=== PATIENT | female | born 1995 | race Two or more races ===

== ENCOUNTER 2020-05-20 16:54 | Outpatient (CLI) | payer OTHER | END 2020-05-20 16:55 | disposition home or self-care (01) | LOC: COV 16:54 | PROVIDERS: ATTEND Family Medicine | DX: M79.10 Myalgia, unspecified site (principal); R53.83 Other fatigue; R11.2 Nausea with vomiting, unspecified; Z20.822 Contact with and (suspected) exposure to COVID-19 ==

== ENCOUNTER 2020-12-20 14:53 | Emergency (ER) | payer OTHER ==
[2020-12-20 15:05] VITALS: BP 95/58
--- NOTE | 2020-12-20 15:31 | ED Physician Documentation ---
PD HPI HEAD INJURY - Stated complaint Stated Complaint: H/A S/P HEAD INJURY - Chief complaint Chief Complaint: Neuro - History obtained from History obtained from: Patient - History of Present Illness Mechanism of head injury: Other (hit head on a cabinet yesterday, increasing headache today.) Pain level max: 8 Pain level now: 6 Location of injury: Back Quality of pain: Aching, Dull Associated symptoms: No: LOC, AMS, Amnesia, Nausea / vomiting, Neck pain, Paresthesias, Seizures Contributing factors: No: Anticoagulated, Intoxicated Recently seen: Not recently seen - Additional information Additional information: 25-year-old female presents to the emergency department stating that she struck her head on a cabinet yesterday when she fell off of a stool. Hit the back of her head. Has had increasing headaches today. No loss of consciousness. No nausea or vomiting. No altered mental status. Nothing makes it better or worse. Review of Systems Constitutional: denies: Fever, Chills GI: denies: Vomiting Skin: denies: Rash Musculoskeletal: denies: Neck pain, Back pain Neurologic: denies: Headache PD PAST MEDICAL HISTORY - Past Medical History Past Medical History: No - Past Surgical History Past Surgical History: No - Present Medications Home Medications: Ambulatory Orders Medication Instructions Recorded Confirmed No Known Home Medications 12/20/20 12/20/20 - Allergies Allergies/Adverse Reactions: Allergies Allergy/AdvReac Type Severity Reaction Status Date / Time casein Allergy Unknown Verified 12/20/20 15:05 - Living Situation Living Situation: reports: With family Living Arrangement: reports: At home - Social History Does the pt have substance abuse?: No - Family History Family history: reports: Non contributory PD ED PE NORMAL - Vitals Vital signs reviewed: Yes - General General: Alert and oriented X 3, No acute distress - HEENT HEENT: Atraumatic, PERRL, Ears normal, Moist mucous membranes, Pharynx benign - Neck Neck: Supple, no meningeal sign, No bony TTP - Cardiac Cardiac: RRR, Strong equal pulses - Respiratory Respiratory: No respiratory distress, Clear bilaterally - Abdomen Abdomen: Soft, Non tender, Non distended - Back Back: No spinal TTP - Derm Derm: Warm and dry - Extremities Extremities: No edema - Neuro Neuro: Alert and oriented X 3, line assembler aircraft 2-12 intact, No motor deficit, No sensory deficit, Normal speech Eye Opening: Spontaneous Motor: Obeys Commands Verbal: Oriented GCS Score: 15 - Psych Psych: Normal mood, Normal affect Results - Vitals Vitals: Vital Signs - 24 hr 12/20/20 14:58 Temperature 36.2 C L Heart Rate 83 Respiratory 16 Rate Blood Pressure 95/58 L O2 Saturation 100 Oxygen O2 Source Room air - Rads (name of study) head CT Radiology: Final report received, EMP read contemporaneously, See rad report (no acute abnormality.) PD MEDICAL DECISION MAKING - ED course Complexity details: reviewed results, re-evaluated patient, considered differential, d/w patient ED course: No acute findings on head CT. Head injury instructions given at bedside. Patient is well-appearing, nontoxic. No focal neurological deficits. No vomiting. Patient counseled regarding signs and symptoms for which I believe and urgent re-evaluation would be necessary. Patient with good understanding of and agreement to plan and is comfortable going home at this time This document was made in part using voice recognition software. While efforts are made to proofread this document, sound alike and grammatical errors may occur. Departure - Departure Disposition: 01 Home, Self Care Clinical Impression: Closed head injury Qualifiers: Encounter type: initial encounter Qualified Code(s): S09.90XA - Unspecified injury of head, initial encounter Condition: Good Instructions: ED Head Injury Closed Follow-Up: your,doctor as needed [Other] Comments: You can use Motrin or Tylenol as needed for pain. Return if you worsen. Follow-up with your doctor for further care. Your head CT does not show any acute abnormalities today. Discharge Date/Time: 12/20/20 16:05
--- NOTE | 2020-12-20 15:37 | CT Report ---
PROCEDURE: HEAD WO INDICATIONS: closed head injury yesterday, increased headache TECHNIQUE: Noncontrast 4.5 mm thick angled axial sections acquired from the foramen magnum to the vertex. For r adiation dose reduction, the following was used: automated exposure control, adjustment of mA and/or kV according to patient size. COMPARISON: None. FINDINGS: Image quality: Excellent. CSF spaces: Basal cisterns are patent. No extra-axial fluid collections. Ventricles are normal in size and shape. Brain: No midline shift. No intracranial masses or hemorrhage. Torres-white matter interface is norm al. Skull and face: Calvarium and visualized facial bones are intact, without suspicious lesions. Sinuses: Visualized sinuses and mastoids are clear. IMPRESSION: Unremarkable CT brain Reviewed by: Roger Montalvo MD on 12/20/2020 2:36 PM [facility] Approved by: Roger Montalvo MD on 12/20/2020 2:36 PM [facility] Station ID: [id number]
== END 2020-12-20 16:05 | disposition home or self-care (01) ==
LOC: ED 14:53
DX: S09.90XA Unspecified injury of head, initial encounter (principal); W08.XXXA Fall from other furniture, initial encounter
CPT/HCPCS: 99282; 99284

== ENCOUNTER 2021-05-14 08:00 | Outpatient (CLI) | payer BC, OTHER ==
[2021-05-14 23:11] LABS: BACTERIAL VAGINOSIS DNA NEGATIVE (NEGATIVE); CANDIDA GLABRATA DNA NEGATIVE (NEGATIVE); CANDIDA GROUP DNA NEGATIVE (NEGATIVE); CANDIDA KRUSEI DNA NEGATIVE (NEGATIVE); TRICHOMONAS VAGINALIS DNA NEGATIVE (NEGATIVE)
== END 2021-05-14 23:59 ==
LOC: LAB.N 08:00
PROVIDERS: ATTEND Family Medicine
DX: N89.8 Other specified noninflammatory disorders of vagina (principal)
CPT/HCPCS: 87661; 87801

== ENCOUNTER 2021-07-28 19:36 | Emergency (ER) | payer BC, OTHER ==
[2021-07-28] MEDS ORDERED: IBUPROFEN 600 MG TABLET PO STA (19:54)
--- OUTSIDE RECORDS SUMMARY | 2021-07-28 19:59 | EXTERNAL MEDICAL SUMMARY RPT | Continuity of Care Document ---
:1995 Author Organization [facility] Address [address] [place] [address] Phone Care Team Providers Name Role Phone CARLOTA Unavailable Unavailable MD Unavailable Unavailable MA Unavailable Unavailable Allergies No information. Encounters No information. Medications No information. 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[employer]INEER[employer] RESEARCH MANAGER III All [id number] POC URINALYSIS DIP All [id number] Vaginitis Pathogens-Affirm ENGINEERING RESEARCH MANAGER III All [id number] POC URINALYSIS DIP All Results test status date ordered by attending specimen irasema e Candida_glabrata_DNA_P unknown [id number] unknown unknown unknown resence_in_Vaginal_flui d_by_NAA_with_probe_det ection Urobilinogen_Presence_ unknown [id number] unknown unknown unknown in_Urine_by_Test_strip Specific_gravity_of_Ur unknown 38653171 unknown unknown unknown ine_by_Test_strip pH_of_Urine_by_Test_st unknown 71900725 unknown unknown unknown rip Nitrite_Presence_in_Ur unknown 34445966 unknown unknown unknown ine_by_Test_strip Leukocyte_esterase_Pre unknown 23909564 unknown unknown unknown sence_in_Urine_by_Test_ strip Ketones_Mass_volume_in unknown 26952686 unknown unknown unknown _Urine_by_Test_strip Glucose_Mass_volume_in unknown 56696261 unknown unknown unknown _Urine_by_Test_strip Color_of_Urine unknown 61897811 unknown unknown unknown Bilirubin.total_Presen unknown 29729730 unknown unknown unknown ce_in_Urine_by_Test_str ip Appearance_of_Urine unknown 21139003 unknown unknown unk nown urinalysis_routine unknown 81240702 unknown unknown unkn own appearance_urine unknown 70193157 unknown unknown unknow n leukocyte_esterase_uri unknown 53183501 unknown unknown unknown ne_by_dipstick urobilinogen_urine_sem unknown 24926456 unknown unknown unknown iquantitative_dipstick_ specific_gravity_urine unknown 00449598 unknown unknown unknown pH_urine_semiquantitat unknown 73402687 unknown unknown unknown madison nitrite_urine_semiquan unknown 86751973 unknown unknown unknown titative ketones_urine_by_test_ unknown 75949585 unknown unknown unknown strip bilirubin_urine unknown 84135864 unknown unknown unknown urine_color unknown 82367870 unknown unknown unknown Albumin_Presence_in_Ur unknown 19730018 unknown unknown unknown ine RBC_urine_dipstick unknown 44957822 unknown unknown unkn own Candida_krusei_by_Real unknown 24416354 unknown unknown unknown -Time_PCR Erythrocytes_area_in_U unknown 51024350 unknown unknown unknown rine_sediment_by_Micros copy_high_power_field glucose_urine_semiquan unknown 08288971 unknown unknown unknown titative protein_urine_semiquan unknown 41534626 unknown unknown unknown titative_dipstick_ Candida_glabrata_by_Re unknown 60372151 unknown unknown unknown if-lkuj_CGL_-_sckjfbv_e ulture DIPSTICK_URINE_STRIP_L unknown 30587937 unknown unknown unknown OT_NUMBER CANDIDA_KRUSEI_DNA unknown 30287905 unknown unknown unkn own CANDIDA_GLABRATA_DNA unknown 03028131 unknown unknown un known T unknown 58509577 unknown unknown unknown T unknown 91900486 unknown unknown unknown Candida_glabrata_DNA_P unknown 52998133 unknown unknown unknown resence_in_Vaginal_flui d_by_NAA_with_probe_det ection Urobilinogen_Presence_ unknown 27670641 unknown unknown unknown in_Urine_by_Test_strip Specific_gravity_of_Ur unknown 94810265 unknown unknown unknown ine_by_Test_strip pH_of_Urine_by_Test_st unknown 29748495 unknown unknown unknown rip Nitrite_Presence_in_Ur unknown 00558717 unknown unknown unknown ine_by_Test_strip Leukocyte_esterase_Pre unknown 48804474 unknown unknown unknown sence_in_Urine_by_Test_ strip Ketones_Mass_volume_in unknown 11138489 unknown unknown unknown _Urine_by_Test_strip Glucose_Mass_volume_in unknown 98291547 unknown unknown unknown _Urine_by_Test_strip Color_of_Urine unknown 33125673 unknown unknown unknown Bilirubin.total_Presen unknown 35459443 unknown unknown unknown ce_in_Urine_by_Test_str ip Appearance_of_Urine unknown 52702787 unknown unknown unk nown urinalysis_routine unknown 07296092 unknown unknown unkn own appearance_urine unknown 98076055 unknown unknown unknow n leukocyte_esterase_uri unknown 86545715 unknown unknown unknown ne_by_dipstick urobilinogen_urine_sem unknown 56431384 unknown unknown unknown iquantitative_dipstick_ specific_gravity_urine unknown 13495233 unknown unknown unknown pH_urine_semiquantitat unknown 96906534 unknown unknown unknown madison nitrite_urine_semiquan unknown 16179955 unknown unknown unknown titative ketones_urine_by_test_ unknown 77626672 unknown unknown unknown strip bilirubin_urine unknown 99249175 unknown unknown unknown urine_color unknown 52459029 unknown unknown unknown Albumin_Presence_in_Ur unknown 96298904 unknown unknown unknown ine RBC_urine_dipstick unknown 59854681 unknown unknown unkn own Candida_krusei_by_Real unknown 75082238 unknown unknown unknown -Time_PCR Erythrocytes_area_in_U unknown 50260836 unknown unknown unknown rine_sediment_by_Micros copy_high_power_field glucose_urine_semiquan unknown 99781107 unknown unknown unknown titative protein_urine_semiquan unknown 96633584 unknown unknown unknown titative_dipstick_ Candida_glabrata_by_Re unknown 98901186 unknown unknown unknown xo-bvlu_CRY_-_wkmgydz_a ulture DIPSTICK_URINE_STRIP_L unknown 19831099 unknown unknown unknown OT_NUMBER CANDIDA_KRUSEI_DNA unknown 37809892 unknown unknown unkn own CANDIDA_GLABRATA_DNA unknown 08538753 unknown unknown un known T unknown 52091599 unknown unknown unknown T unknown 82956455 unknown unknown unknown Candida_glabrata_DNA_P unknown 14518111 unknown unknown unknown resence_in_Vaginal_flui d_by_NAA_with_probe_det ection Urobilinogen_Presence_ unknown 49117919 unknown unknown unknown in_Urine_by_Test_strip Specific_gravity_of_Ur unknown 38616393 unknown unknown unknown ine_by_Test_strip pH_of_Urine_by_Test_st unknown 19687659 unknown unknown unknown rip Nitrite_Presence_in_Ur unknown 26572370 unknown unknown unknown ine_by_Test_strip Leukocyte_esterase_Pre unknown 01707144 unknown unknown unknown sence_in_Urine_by_Test_ strip Ketones_Mass_volume_in unknown 81763776 unknown unknown unknown _Urine_by_Test_strip Glucose_Mass_volume_in unknown 25555150 unknown unknown unknown _Urine_by_Test_strip Color_of_Urine unknown 10806472 unknown unknown unknown Bilirubin.total_Presen unknown 73649064 unknown unknown unknown ce_in_Urine_by_Test_str ip Appearance_of_Urine unknown 66398454 unknown unknown unk nown urinalysis_routine unknown 67197949 unknown unknown unkn own appearance_urine unknown 66536592 unknown unknown unknow n leukocyte_esterase_uri unknown 71910512 unknown unknown unknown ne_by_dipstick urobilinogen_urine_sem unknown 59919635 unknown unknown unknown iquantitative_dipstick_ specific_gravity_urine unknown 63323649 unknown unknown unknown pH_urine_semiquantitat unknown 35995919 unknown unknown unknown madison nitrite_urine_semiquan unknown 60159065 unknown unknown unknown titative ketones_urine_by_test_ unknown 12572635 unknown unknown unknown strip bilirubin_urine unknown 35466918 unknown unknown unknown urine_color unknown 30499017 unknown unknown unknown Albumin_Presence_in_Ur unknown 10247020 unknown unknown unknown ine RBC_urine_dipstick unknown 20820263 unknown unknown unkn own Candida_krusei_by_Real unknown 03793731 unknown unknown unknown -Time_PCR Erythrocytes_area_in_U unknown 70822727 unknown unknown unknown rine_sediment_by_Micros copy_high_power_field glucose_urine_semiquan unknown 13706751 unknown unknown unknown titative protein_urine_semiquan unknown 39911470 unknown unknown unknown titative_dipstick_ Candida_glabrata_by_Re unknown 95686276 unknown unknown unknown on-papv_EMF_-_kcmqgkr_x ulture DIPSTICK_URINE_STRIP_L unknown 20210514 unknown unknown unknown OT_NUMBER CANDIDA_KRUSEI_DNA unknown 20210514 unknown unknown unkn own CANDIDA_GLABRATA_DNA unknown 20210514 unknown unknown un known T unknown 20210514 unknown unknown unknown T unknown 20210514 unknown unknown unknown facility observation status value reference units lab abnor mal line range code notes All Candida_glab unknown NEGATIVE unknown _6956 unkno wn unknown rata_DNA_Pres 3-5 ence_in_Vagin al_fluid_by_N AA_with_probe _detection All Urobilinogen unknown negative unknown _5818 unkno wn unknown _Presence_in_ -0 Urine_by_Test _strip All Specific_gra unknown 1.005 unknown _5811 unknown unknown vity_of_Urine -5 _by_Test_stri p All pH_of_Urine_ unknown 5 unknown _5803 unknown unknown by_Test_strip -2 All Nitrite_Pres unknown negative unknown _5802 unkno wn unknown ence_in_Urine -4 _by_Test_stri p All Leukocyte_es unknown negative unknown _5799 unkno wn unknown terase_Presen -2 ce_in_Urine_b y_Test_strip All Ketones_Mass unknown negative unknown _5797 unkno wn unknown _volume_in_Ur -6 ine_by_Test_s trip All Glucose_Mass unknown negative unknown _5792 unkno wn unknown _volume_in_Ur -7 ine_by_Test_s trip All Color_of_Uri unknown yellow unknown _5778 unknown unknown ne -6 All Bilirubin.to unknown negative unknown _5770 unkno wn unknown tal_Presence_ -3 in_Urine_by_T est_strip All Appearance_o unknown clear unknown _5767 unknown unknown f_Urine -9 All urinalysis_r unknown Clean unknown _47 unknown unknown outine Catch All appearance_u unknown clear unknown _328 unknown unknown rine All leukocyte_es unknown negative unknown _327 unkno wn unknown terase_urine_ by_dipstick All urobilinogen unknown negative unknown _326 unkno wn unknown _urine_semiqu antitative_di pstick_ All specific_gra unknown 1.005 unknown _325 unknown unknown vity_urine All pH_urine_sem unknown 5 unknown _324 unknown unknown iquantitative All nitrite_urin unknown negative unknown _323 unkno wn unknown e_semiquantit ative All ketones_urin unknown negative unknown _322 unkno wn unknown e_by_test_str ip All bilirubin_ur unknown negative unknown _319 unkno wn unknown ine All urine_color unknown yellow unknown _2751 unknown unknown All Albumin_Pres unknown negative unknown _1753 unkno wn unknown ence_in_Urine -3 All RBC_urine_di unknown negative unknown _1700 unkno wn unknown pstick 005 All Candida_krus unknown NEGATIVE unknown _1535 unkno wn unknown ei_by_Real-Ti 62 me_PCR All Erythrocytes unknown negative unknown _1394 unkno wn unknown _area_in_Urin 5-1 e_sediment_by _Microscopy_h igh_power_fie ld All glucose_urin unknown negative unknown _123 unkno wn unknown e_semiquantit ative All protein_urin unknown negative unknown _118 unkno wn unknown e_semiquantit ative_dipstic k_ All Candida_glab unknown NEGATIVE unknown _1087 unkno wn unknown rata_by_Real- 87 time_PCR_-_va ginal_culture All DIPSTICK_URI unknown 594960 unknown _1014 unknown unknown NE_STRIP_LOT_ 00 NUMBER All CANDIDA_KRUS unknown NEGATIVE unknown CKRUS unkno wn unknown EI_DNA EI_DNA All CANDIDA_GLAB unknown NEGATIVE unknown CGLAB unkno wn unknown RATA_DNA RATA_D NA All T unknown NEGATIVE unknown C._KR unknown un known USEI_D NA All T unknown NEGATIVE unknown C._GL unknown un known ABRATA _DNA All Candida_glab unknown NEGATIVE unknown _6956 unkno wn unknown rata_DNA_Pres 3-5 ence_in_Vagin al_fluid_by_N AA_with_probe _detection All Urobilinogen unknown negative unknown _5818 unkno wn unknown _Presence_in_ -0 Urine_by_Test _strip All Specific_gra unknown 1.005 unknown _5811 unknown unknown vity_of_Urine -5 _by_Test_stri p All pH_of_Urine_ unknown 5 unknown _5803 unknown unknown by_Test_strip -2 All Nitrite_Pres unknown negative unknown _5802 unkno wn unknown ence_in_Urine -4 _by_Test_stri p All Leukocyte_es unknown negative unknown _5799 unkno wn unknown terase_Presen -2 ce_in_Urine_b y_Test_strip All Ketones_Mass unknown negative unknown _5797 unkno wn unknown _volume_in_Ur -6 ine_by_Test_s trip All Glucose_Mass unknown negative unknown _5792 unkno wn unknown _volume_in_Ur -7 ine_by_Test_s trip All Color_of_Uri unknown yellow unknown _5778 unknown unknown ne -6 All Bilirubin.to unknown negative unknown _5770 unkno wn unknown tal_Presence_ -3 in_Urine_by_T est_strip All Appearance_o unknown clear unknown _5767 unknown unknown f_Urine -9 All urinalysis_r unknown Clean unknown _47 unknown unknown outine Catch All appearance_u unknown clear unknown _328 unknown unknown rine All leukocyte_es unknown negative unknown _327 unkno wn unknown terase_urine_ by_dipstick All urobilinogen unknown negative unknown _326 unkno wn unknown _urine_semiqu antitative_di pstick_ All specific_gra unknown 1.005 unknown _325 unknown unknown vity_urine All pH_urine_sem unknown 5 unknown _324 unknown unknown iquantitative All nitrite_urin unknown negative unknown _323 unkno wn unknown e_semiquantit ative All ketones_urin unknown negative unknown _322 unkno wn unknown e_by_test_str ip All bilirubin_ur unknown negative unknown _319 unkno wn unknown ine All urine_color unknown yellow unknown _2751 unknown unknown All Albumin_Pres unknown negative unknown _1753 unkno wn unknown ence_in_Urine -3 All RBC_urine_di unknown negative unknown _1700 unkno wn unknown pstick 005 All Candida_krus unknown NEGATIVE unknown _1535 unkno wn unknown ei_by_Real-Ti 62 me_PCR All Erythrocytes unknown negative unknown _1394 unkno wn unknown _area_in_Urin 5-1 e_sediment_by _Microscopy_h igh_power_fie ld All glucose_urin unknown negative unknown _123 unkno wn unknown e_semiquantit ative All protein_urin unknown negative unknown _118 unkno wn unknown e_semiquantit ative_dipstic k_ All Candida_glab unknown NEGATIVE unknown _1087 unkno wn unknown rata_by_Real- 87 time_PCR_-_va ginal_culture All DIPSTICK_URI unknown 938925 unknown _1014 unknown unknown NE_STRIP_LOT_ 00 NUMBER All CANDIDA_KRUS unknown NEGATIVE unknown CKRUS unkno wn unknown EI_DNA EI_DNA All CANDIDA_GLAB unknown NEGATIVE unknown CGLAB unkno wn unknown RATA_DNA RATA_D NA All T unknown NEGATIVE unknown C._KR unknown un known USEI_D NA All T unknown NEGATIVE unknown C._GL unknown un known ABRATA _DNA All Candida_glab unknown NEGATIVE unknown _6956 unkno wn unknown rata_DNA_Pres 3-5 ence_in_Vagin al_fluid_by_N AA_with_probe _detection All Urobilinogen unknown negative unknown _5818 unkno wn unknown _Presence_in_ -0 Urine_by_Test _strip All Specific_gra unknown 1.005 unknown _5811 unknown unknown vity_of_Urine -5 _by_Test_stri p All pH_of_Urine_ unknown 5 unknown _5803 unknown unknown by_Test_strip -2 All Nitrite_Pres unknown negative unknown _5802 unkno wn unknown ence_in_Urine -4 _by_Test_stri p All Leukocyte_es unknown negative unknown _5799 unkno wn unknown terase_Presen -2 ce_in_Urine_b y_Test_strip All Ketones_Mass unknown negative unknown _5797 unkno wn unknown _volume_in_Ur -6 ine_by_Test_s trip All Glucose_Mass unknown negative unknown _5792 unkno wn unknown _volume_in_Ur -7 ine_by_Test_s trip All Color_of_Uri unknown yellow unknown _5778 unknown unknown ne -6 All Bilirubin.to unknown negative unknown _5770 unkno wn unknown tal_Presence_ -3 in_Urine_by_T est_strip All Appearance_o unknown clear unknown _5767 unknown unknown f_Urine -9 All urinalysis_r unknown Clean unknown _47 unknown unknown outine Catch All appearance_u unknown clear unknown _328 unknown unknown rine All leukocyte_es unknown negative unknown _327 unkno wn unknown terase_urine_ by_dipstick All urobilinogen unknown negative unknown _326 unkno wn unknown _urine_semiqu antitative_di pstick_ All specific_gra unknown 1.005 unknown _325 unknown unknown vity_urine All pH_urine_sem unknown 5 unknown _324 unknown unknown iquantitative All nitrite_urin unknown negative unknown _323 unkno wn unknown e_semiquantit ative All ketones_urin unknown negative unknown _322 unkno wn unknown e_by_test_str ip All bilirubin_ur unknown negative unknown _319 unkno wn unknown ine All urine_color unknown yellow unknown _2751 unknown unknown All Albumin_Pres unknown negative unknown _1753 unkno wn unknown ence_in_Urine -3 All RBC_urine_di unknown negative unknown _1700 unkno wn unknown pstick 005 All Candida_krus unknown NEGATIVE unknown _1535 unkno wn unknown ei_by_Real-Ti 62 me_PCR All Erythrocytes unknown negative unknown _1394 unkno wn unknown _area_in_Urin 5-1 e_sediment_by _Microscopy_h igh_power_fie ld All glucose_urin unknown negative unknown _123 unkno wn unknown e_semiquantit ative All protein_urin unknown negative unknown _118 unkno wn unknown e_semiquantit ative_dipstic k_ All Candida_glab unknown NEGATIVE unknown _1087 unkno wn unknown rata_by_Real- 87 time_PCR_-_va ginal_culture All DIPSTICK_URI unknown 639028 unknown _1014 unknown unknown NE_STRIP_LOT_ 00 NUMBER All CANDIDA_KRUS unknown NEGATIVE unknown CKRUS unkno wn unknown EI_DNA EI_DNA All CANDIDA_GLAB unknown NEGATIVE unknown CGLAB unkno wn unknown RATA_DNA RATA_D NA All T unknown NEGATIVE unknown C._KR unknown un known USEI_D NA All T unknown NEGATIVE unknown C._GL unknown un known ABRATA _DNA Vital Signs date measurement value source 20210514 weight_standard 95 lb 20210514 weight_metric 43.09 kg 20210514 temperature_standard 99 F 20210514 temperature_metric 37.22 C 20210514 respiration_rate 14 /min 20210514 heart_rate 80 /min 20210514 BP_systolic 122 mm[Hg] 20210514 BP_diastolic 83 mm[Hg] 20210514 weight_standard 95 lb 20210514 weight_metric 43.09 kg 20210514 temperature_standard 99 F 20210514 temperature_metric 37.22 C 20210514 respiration_rate 14 /min 20210514 heart_rate 80 /min 20210514 BP_systolic 122 mm[Hg] 20210514 BP_diastolic 83 mm[Hg] 20210514 weight_standard 95 lb 20210514 weight_metric 43.09 kg 20210514 temperature_standard 99 F 20210514 temperature_metric 37.22 C 20210514 respiration_rate 14 /min 20210514 heart_rate 80 /min 20210514 BP_systolic 122 mm[Hg] 20210514 BP_diastolic 83 mm[Hg] 20210530 weight_standard 95.5 lb 20210530 weight_metric 43.32 kg 20210530 temperature_standard 99 F 20210530 temperature_metric 37.22 C 20210530 respiration_rate 14 /min 20210530 height_standard 61 in 20210530 height_metric 154.94 cm 20210530 heart_rate 66 /min 20210530 BP_systolic 103 mm[Hg] 20210530 BP_diastolic 67 mm[Hg] 20210530 BMI 18.11 kg/m2
[2021-07-28] MEDS ORDERED: SODIUM CHLORIDE 0.9% 1,000 ML IV STA (20:13)
--- NOTE | 2021-07-28 20:23 | ED Physician Documentation ---
History of Present Illness - Stated complaint Stated Complaint: C+,FEVER,NAUSEA - Chief complaint Chief Complaint: General - Additonal information Additional information: 25-year-old female comes to the emergency department for evaluation of severe body aches. Some headache and nausea but no vomiting. No dysuria urgency or frequency. Fully vaccinated for COVID-19 though not boosted. She tested positive at home and has not felt that Tylenol or ibuprofen helped. Does not have a history of hypertension or diabetes or immune compromise. No history of coronary artery disease COPD or asthma. Review of Systems Constitutional: reports: Fever, Chills, Myalgias, Fatigue Eyes: reports: Reviewed and negative Throat: reports: Reviewed and negative Cardiac: reports: Reviewed and negative Respiratory: reports: Reviewed and negative GI: reports: Reviewed and negative : reports: Reviewed and negative Musculoskeletal: reports: Other (Generalized myalgias) Neurologic: reports: Reviewed and negative Psychiatric: reports: Reviewed and negative PD PAST MEDICAL HISTORY - Past Surgical History Past Surgical History: No - Present Medications Home Medications: Ambulatory Orders Medication Instructions Recorded Confirmed No Known Home Medications 12/20/20 07/28/21 - Allergies Allergies/Adverse Reactions: Allergies Allergy/AdvReac Type Severity Reaction Status Date / Time casein Allergy Hives Verified 07/28/21 19:46 - Social History Does the pt have substance abuse?: No PD ED PE NORMAL - General General: Alert and oriented X 3, No acute distress, Other (Appears uncomfortable) - HEENT HEENT: Atraumatic, Ears normal, Moist mucous membranes, Pharynx benign - Neck Neck: Supple, no meningeal sign, No adenopathy - Cardiac Cardiac: RRR, No murmur (Mild tachycardia with a heart rate of 110) - Respiratory Respiratory: No respiratory distress - Abdomen Abdomen: Normal bowel sounds, Soft, Non tender, Non distended - Back Back: No CVA TTP, No spinal TTP - Derm Derm: Normal color, Warm and dry, No rash - Extremities Extremities: No deformity - Neuro Neuro: Alert and oriented X 3 Eye Opening: Spontaneous Verbal: Oriented - Psych Psych: Normal mood Results - Vitals Vitals: Vital Signs - 24 hr 07/28/21 19:38 Temperature 38.5 C H Heart Rate 90 Respiratory 18 Rate Blood Pressure 112/71 O2 Saturation 99 Oxygen O2 Source Room air - Rads (name of study) cxr Radiology: EMP read indepedently (No acute cardiopulmonary process) PD MEDICAL DECISION MAKING - ED course Complexity details: reviewed results, re-evaluated patient, considered differential, d/w patient ED course: 25-year-old female who is doubly vaccinated but not boosted for COVID-19 presents emergency department for evaluation of fevers and severe myalgias. No cough abdominal pain nausea vomiting or diarrhea. She states that she has never had such a bad ache before. She was administered ibuprofen as well as a liter crystalloid. On reevaluation to the emergency department she feels markedly better. Chest x-ray is without acute focal findings. No hypoxia and unremarkable cardiopulmonary auscultation. Though COVID-positive she does not have any high risk features for severe disease. Does not meet the criteria for hospitalization. Thus she does not meet the requirements for EUA guidelines for oral antiviral therapies of covid 19 infection. Patient is advised to maintain appropriate quarantine, Tylenol and ibuprofen at home for discomfort. Emergent return precautions otherwise discussed. Departure - Departure Disposition: Home, Self Care Clinical Impression: COVID-19 Condition: Stable Record reviewed to determine appropriate education?: Yes Comments: Tonya you were seen today in the emergency department for severe body aches fever in the setting of recently diagnosed COVID-19 infection. Your chest x-ray is normal. Your vital signs are normal with the exception of fever. You do not need to be admitted to the hospital. In general this current with COVID-19 seems to be associated with very significant body aches. I do recommend he take Tylenol 500 mg with food 2-3 times a day or alternatively 600 mg of ibuprofen with food for body aches. It is important you stay well-hydrated. Please follow-up with the CDC website for current quarantine guidelines. If at any point you develop worsening symptoms, have difficulty breathing uncontrolled vomiting or any fainting episodes and please return immediately to the ER for psych evaluation
[2021-07-28 21:56] VITALS: BP 101/68
--- NOTE | 2021-07-28 22:19 | XRAY Report ---
PROCEDURE: Chest 1 View X-Ray INDICATIONS: Positive Covid test. TECHNIQUE: One view of the chest was acquired. COMPARISON: None. FINDINGS: Surgical changes and devices: None. Lungs and pleura: No pleural effusions or pneumothorax. Lungs are clear. Mediastinum: Mediastinal contours appear normal. Heart size is normal. Bones and chest wall: No suspicious bony lesions. Overlying soft tissues appear unremarkable. IMPRESSION: 1. No acute cardiopulmonary disease. Reviewed by: Isidro Oglesby MD on 07/28/2021 10:17 PM PDT Approved by: Isidro Oglesby MD on 07/28/2021 10:17 PM PDT Station ID: [id number]
== END 2021-07-28 22:05 | disposition home or self-care (01) ==
LOC: ED 19:36
DX: U07.1 COVID-19 (principal)
CPT/HCPCS: 71045; 96360; 96361; 99282; 99284; A9270